=== PATIENT | female | born 1970 | race Caucasian/White ===

== ENCOUNTER 2019-11-13 07:45 | Outpatient (CLI) | payer BC, SELFPAY ==
--- NOTE | 2019-11-13 | XR_ITS ---
WS: [id number] RIGHT HAND: 2 VIEW(S) TECHNIQUE: PA and lateral. HISTORY: HAND INJURY RIGHT COMPARISON: None available. No acute fracture or dislocation. No soft tissue or bone abnormality. XR/XR hand RT 2V [id number] IMPRESSION: Normal RIGHT hand.
== END 2019-11-13 07:46 | disposition home or self-care (01) ==
LOC: RADOUTREAD 11-15 07:21
PROVIDERS: Family Provider Family Medicine; PCP Nurse Practitioner Family; Visit Provider Nurse Practitioner Family
DX: S69.91XA Unspecified injury of right wrist, hand and finger(s), initial encounter (principal); W19.XXXA Unspecified fall, initial encounter

== ENCOUNTER 2020-10-26 11:43 | Emergency (ER) | payer BC, SELFPAY ==
[2020-10-26 11:47] VITALS: BP 172/90; PULSE 92; RESP 18; TEMP 36.2; O2SAT 97; BMI 31.2
--- NOTE | 2020-10-26 11:57 | W.ED.ABDPA2 ---
HPI - Abdominal Pain General: Chief Complaint: Abdominal Pain Stated Complaint: ABD PAIN/SENT FROM Time Seen by Provider: 10/26/20 11:50 Source: patient Mode of arrival: ambulatory Limitations: no limitations History of Present Illness: HPI narrative: Pleasant 50-year-old female patient presents to the emergency department with 2-day history of abdominal pain. She reports pain started in the mid abdomen on the right side 2 days ago with migration to the right lower quadrant past 12 hours. Denies family history of appendicitis, reports pain is worse with walking and laughing. Reports nausea, denies fever chills. States increased frequency of bowel movements past 48 hours, denies diarrhea. Reports last ate yesterday at 1900, attempted to drink a diet Coke this morning at 8 AM but became nauseated. Last bowel movement this morning. MD elicited complaint: abdominal pain Onset (ago): day(s) (2) Pain Consistency: constant Location: RUQ, RLQ and R flank Severity: moderate Quality: cramping, aching and dull Radiation: RLQ and back Exacerbating factors: movement Relieving factors: rest Associated Symptoms: Reports anorexia, bloating, change in bowel habits, chills and nausea; Denies constipation, diarrhea, dysuria, heartburn and vomiting Review of Systems General: Reports: 10 or more systems reviewed and unremarkable except in HPI and below Const: Reports: chills Eyes: Denies: blurry vision or eye redness ENMT: Denies: throat pain, dental pain or disequilibrium Card: Denies: chest pain, palpitations or irregular heart rhythm Resp: Denies: dyspnea, productive cough, non-productive cough or wheezing GI: Reports: abdominal pain, nausea, bloating and change in bowel habits; Denies: vomiting, heartburn, diarrhea or constipation : Denies: difficulty voiding or dysuria Musc: Reports: back pain (rt); Denies: neck pain, muscle cramps or muscle weakness Skin/Breast: Denies: rash, pruritus or changes in skin color Neuro: Denies: headache(s), weakness in extremities or behavioral changes Psych: Denies: anxiety or depression Naldo/Lymph: Denies: easy bruising PFSH ED PFSH: Surgical History (Updated 10/26/20 @ 12:01 by CINDY Moscoso) History of partial hysterectomy Physical Exam Const: COMMON NORMALS: no acute distress, patient oriented x3, healthy appearing, alert and well nourished EXAM LIMITATIONS: no altered mental status and no physical limitations GENERAL APPEARANCE: cooperative, well kempt, well developed and well hydrated; not comfortable NUTRITIONAL APPEARANCE: overweight ORIENTATION/CONSCIOUSNESS: Yes awake, Yes oriented to person, Yes oriented to place and Yes oriented to time HENMT: COMMON NORMALS: normocephalic, Normal external nose present and moist oral mucous membranes HEAD & SCALP: normocephalic NOSE: Normal external nose present Eye: COMMON NORMALS: Equal, round and reactive pupils present and EOMs intact bilaterally GENERAL EYE: appearance normal, both eyes and all related structures PUPIL: Yes Equal, round and reactive pupils present Neck/C-Spine: COMMON NORMALS: full ROM and no lymphadenopathy GENERAL: Yes normal visual inspection and Yes trachea midline CERVICAL SPINE: Yes cervical ROM normal Lymph: LYMPHATIC: no lymphadenopathy noted Chest: COMMONS NORMALS: normal inspection of the chest Resp: COMMON NORMALS: normal respiratory effort, No retractions, No use of accessory muscles and clear to auscultation bilaterally EFFORT & INSPECTION: Yes able to speak in complete sentences AUSCULTATION: clear to auscultation bilaterally Cardio: COMMON NORMALS: regular rhythm, S1 normal heart sound present and S2 normal heart sound present RHYTHM: regular rhythm HEART SOUNDS: S1 normal heart sound present and S2 normal heart sound present GI: COMMON NORMALS: Soft to palpation and non-tender INSPECTION: Yes normal to inspection, No Abdominal wall edema, No abdominal distension, Yes incision, Yes central obesity and No visible herniation AUSCULTATION: Yes Hypoactive bowel sounds present PALPATION: Yes Soft to palpation, No Firmness to palpation present (GI), Yes Tenderness to palpation present (GI) Details: RLQ, No Rebound tenderness present and Yes Other GI palpation findings present (Negative Gee's, positive McBurney's, positive Scott) Back/Pelvis: COMMON NORMALS: thoracic and lumbar spine normal to inspection and thoraco-lumbar ROM normal GENERAL BACK: Yes CVA tenderness CVA tenderness: right Extremity: COMMON NORMALS: normal to inspection and capillary refill normal Neuro: COMMON NORMALS: patient oriented x3 and no focal motor deficits SENSORIUM/ORIENTATION: Yes alert, Yes oriented to person, Yes oriented to place and Yes oriented to time Psych: COMMON NORMALS: mental status grossly normal, Normal thought process present and cooperative APPEARANCE: Yes well kempt ACTIVITY/MOTOR BEHAVIOR: Yes appropriate eye contact THOUGHT PROCESS: Normal thought process present Skin: COMMON NORMALS: no rashes or lesions noted and turgor normal GENERAL SKIN EXAM: no rashes or lesions noted and turgor normal Course ED course: 50-year-old pleasant female presents to the emergency department with 2-day onset of abdominal pain. Abdominal pain was specific to the right lower quadrant today. Reports initial onset was localized to the right upper abdominal area with migration to the right lower quadrant. Serology findings normal, lipase was normal chemistry unremarkable and CBC without leukocytosis or anemia. Urine was without urinary tract infection, CT scan of the abdomen and pelvis with normal appendix, normal gallbladder, no acute findings identified. CT scan did reveal diverticulosis, esophageal gastric thickening suggestive of gastritis. She was placed on Zofran, able to tolerate p.o. ice chips/fluids here in the ED. Zofran did alleviate nausea, CT scan and serology work-up results discussed with patient and her spouse. Questions were answered as plan of care was discussed. She will receive prescription of Zofran with instructions to return to the emergency department for worsening symptoms. Verbalized understanding. Vital Signs: Vital signs: Vital Signs Temperature 97.2 F L 10/26/20 11:47 Pulse Rate 72 10/26/20 15:44 Respiratory Rate 18 10/26/20 15:44 Blood Pressure 132/80 10/26/20 15:44 Pulse Oximetry 94 10/26/20 15:44 MDM - Abdominal Pain Lab Data: Labs: Lab Results 10/26/20 10/26/20 10/26/20 Range/Units 12:18 12:26 12:26 WBC 9.1 (4.0-10.0) 10^3/ uL RBC 4.50 (4.1-5.3) 10^6/u L Hgb 13.7 (11.5-15.3) g/dL Hct 42.1 (37.0-47.0) % MCV 93.6 (81-99) fL MCH 30.4 (28.0-34.0) pg MCHC 32.5 (30.0-36.0) g/dL RDW 11.7 L (12.1-15.1) % Plt Count 364 (130-400) 10^3/c mm MPV 9.1 (7.4-10.4) fL Neut % (Auto) 63.3 % Lymph % (Auto) 23.8 % [place] % (Auto) 6.9 % Eos % (Auto) 5.0 % Baso % (Auto) 0.8 % Neut # (Auto) 5.77 (1.8-7.7) 10^3/u L Lymph # (Auto) 2.2 (0.8-4.8) 10^3/u L [place] # (Auto) 0.6 (0.2-0.9) 10^3/u L Eos # (Auto) 0.5 (0.0-0.8) 10^3/u L Baso # (Auto) 0.1 (0.0-0.1) 10^3/u L Nucleated RBC % (a uto) 0 % Nucleated RBCs # 0.0 /100WBC Sodium 140 (136-145) mmol/L Potassium 4.0 (3.5-5.1) mmol/L Chloride 108 H (98-107) mmol/L Carbon Dioxide 22 (22-29) mmol/L Anion Gap 14.0 (5-19) BUN 8 (6-20) mg/dL Creatinine 0.7 (0.5-0.9) mg/dL GFR Calculation 89.3 L (90-130) mL/min Glucose 100 (65-115) mg/dL Calculated Osmolal ity 288 (285-295) mOsm/k g Calcium 8.9 (8.5-10.5) mg/dL Total Bilirubin 0.5 (0.15-1.2) mg/dL AST 34 H (0-32) U/L ALT 54 H (0-33) U/L Alkaline Phosphata se 56 (35-105) IU/L Total Protein 6.9 (6.6-8.7) g/dL Albumin 4.3 (3.5-5.2) g/dL Globulin 2.6 (1.3-4.6) g/dL Lipase 16 (13-60) U/L Urine Color Yellow (Yellow) Urine Appearance Sl hazy (CLEAR) Urine pH 6 (5-7) Ur Specific Gravit y 1.015 (1.005-1.030) Urine Protein Neg (Negative) Urine Glucose (UA) Norm (Normal) Urine Ketones Negative (Negative) Urine Blood Neg (Negative) Urine Nitrate Negative (Negative) Urine Bilirubin Neg (Negative) Urine Urobilinogen Norm (Negative) mg/dL Ur Leukocyte Kianna ase Negative (Negative) Urine RBC None (0-2) /hpf Urine WBC Rare (0-5) /hpf Ur Squamous Epith Cells 10-15 H (0-5) /hpf Amorphous Sediment Not Reportable Urine Bacteria 2+ H (NONE) /hpf Urine Mucus 2+ /hpf Imaging Data ^: CT Abd/Pel: Radiologist's impression: [employer] [address] [address] Scan Report Signed Patient: Chantell Murphy Unit #: [id number] : 1970 Age/Sex: 50 / F ADM Date: 10/26/20 Loc: ER Room/Bed: Attending Dr: Ordering Provider/Ordering MD: Negrita Linton Date of Service: 10/26/20 Procedure(s): CT abdomen pelvis w con* [id number] Accession Number(s): [id number] Report Number: [id number] PROCEDURE INFORMATION: Exam: CT Abdomen And Pelvis With Contrast Exam date and time: 10/26/2020 1:52 PM Age: 50 years old Clinical indication: Abdominal pain; Localized; Right lower quadrant (rlq); Prior surgery; Surgery date: 6+ months; Surgery type: Hyst; Patient HX: C/O rlq pain w nausea; Additional info: Rlq pain, ? appy TECHNIQUE: Imaging protocol: Computed tomography of the abdomen and pelvis with intravenous contrast. Radiation optimization: All CT scans at this facility use at least one of these dose optimization techniques: automated exposure control; mA and/or kV adjustment per patient size (includes targeted exams where dose is matched to clinical indication); or iterative reconstruction. Contrast material: OMNI 300; Contrast volume: 95 ml; Contrast route: INTRAVENOUS (IV); COMPARISON: CT abdomen pelvis w con* [id number] 02/28/2015 3:09 PM RADIATION DOSE METRICS: Total DLP (mGy-cm): 1190.01 FINDINGS: Lungs: There are pulmonary parenchymal calcifications consistent with remote granulomatous organism exposure. Mediastinal space: There is mucosal thickening of the distal esophagus and gastroesophageal junction. Liver: Normal. No mass. Gallbladder and bile ducts: Normal. No calcified stones. No ductal dilation. Pancreas: Normal. No ductal dilation. Spleen: Normal. No splenomegaly. Adrenal glands: Normal. No mass. Kidneys and ureters: Normal. No hydronephrosis. Stomach and bowel: There is diverticulosis of the colon without evidence of diverticulitis. Appendix: A normal appendix is identified. Intraperitoneal space: Unremarkable. No free air. No significant fluid collection. Vasculature: Unremarkable. No abdominal aortic aneurysm. Lymph nodes: Unremarkable. No enlarged lymph nodes. Urinary bladder: Unremarkable as visualized. Reproductive: There are normal appearing ovarian follicles. The uterus has been removed. Bones/joints: Unremarkable. No acute fracture. Soft tissues: Tiny fat containing umbilical hernia. CT/CT abdomen pelvis w con* [id number] IMPRESSION: 1. A normal appendix is identified. No evidence for acute appendicitis. 2. There is thickening of the distal esophagus and gastroesophageal junction consistent with nonspecific esophagitis/gastritis. Radiation Dose CTDIVOL = (mGy): DLP = 1190.01 (mGy-cm) Dictated By: Sadie Rodriguez MD Signed By: Sadie Rodriguez MD Signed Date/Time: 10/26/201448 DD/ 47 Discharge Plan Discharge Patient Disposition: Home Clinical Impression: Abdominal pain Qualifiers: Abdominal location: right lower quadrant Qualified Code(s): R10.31 - Right lower quadrant pain Gastritis Qualifiers: Gastritis type: unspecified gastritis Chronicity: acute Gastritis bleeding: without bleeding Qualified Code(s): K29.00 - Acute gastritis without bleeding Condition: Stable Prescriptions: New Zofran 4 mg tablet 4 mg PO Q4H 5 Days Qty: 14 RF: 0 No Action montelukast 10 mg tablet 10 mg PO DAILY@21 RF: 0 albuterol sulfate 90 mcg/actuation HFA aerosol inhaler 2 puff INHALATION Q6H PRN (Reason: Shortness Of Breath) RF: 0 rosuvastatin 20 mg tablet 20 mg PO DAILY@21 RF: 0 bupropion HCl 150 mg tablet extended release 24 hr 150 mg PO DAILY@21 RF: 0 Discharge Orders: Discharge ED (Routine); Ordered 10/26/20 Ordered By: Negrita Linton Referrals: Zakiya Smith NP [Primary Care Provider] - Discharge Diet: Advance as tolerated and Clear Liquid Discharge Activity: Limit activity as instructed Patient Instructions: Acute Nausea and Vomiting (ED), Abdominal Pain (ED) Activity Restrictions/Additional Instructions: Clear liquid diet x12 hours and advance as tolerated; avoid fried fatty greasy foods for the next several days until feeling better Take Zofran as needed for nausea Return to the emergency department if you develop vomiting despite use of Zofran, worsening abdominal pain or new concerning symptoms Push fluids Coding Level of Care Code ED Mva Reactor Operator Head for Chiara Fwd Exam Comprehensive
[2020-10-26] MEDS: ondansetron 2 mg/ML SDV 2 mL 4 MG IVP (12:40)
[2020-10-26 13:13] LABS: Basophils # 0.1 10^3/uL (0.0-0.1); Basophils % 0.8 %; Eosinophils # 0.5 10^3/uL (0.0-0.8); Hematocrit 42.1 % (37.0-47.0); Hemoglobin 13.7 g/dL (11.5-15.3); Lymphocytes # 2.2 10^3/uL (0.8-4.8); Lymphocytes % 23.8 %; Mean Corpuscular HGB Conc 32.5 g/dL (30.0-36.0); Mean Corpuscular Hemoglobin 30.4 pg (28.0-34.0); Mean Corpuscular Volume 93.6 fL (81-99); Mean Platelet Volume 9.1 fL (7.4-10.4); Monocytes # 0.6 10^3/uL (0.2-0.9); Monocytes % 6.9 %; Neutrophils # 5.77 10^3/uL (1.8-7.7); Neutrophils % 63.3 %; Nucleated Red Blood Cells % 0 %; Platelet Count 364 10^3/cmm (130-400); Red Cell Distribution Width 11.7 % (12.1-15.1); White Blood Count 9.1 10^3/uL (4.0-10.0)
[2020-10-26 13:33] LABS: Add Urine Microscopic? YES; Bilirubin Urine Neg (Negative); Blood Urine Neg (Negative); Glucose Urine UA Norm (Normal); Ketones Urine Negative (Negative); Leukocyte Esterase Urine Negative (Negative); Nitrate Urine Negative (Negative); Protein Urine Neg (Negative); Specific Gravity, Urine 1.015 (1.005-1.030); Urine Appearance SL Hazy (CLEAR); Urine Color Yellow (Yellow); Urobilinogen Urine Norm (Negative); pH Urine 6 (5-7)
[2020-10-26 13:36] LABS: Alanine Aminotransferase 54 U/L (0-33); Albumin Level 4.3 g/dL (3.5-5.2); Alkaline Phosphatase 56 IU/L (35-105); Aspartate Amino Transferase 34 U/L (0-32); Blood Urea Nitrogen 8 mg/dL (6-20); Calcium 8.9 mg/dL (8.5-10.5); Carbon Dioxide 22 mmol/L (22-29); Chloride 108 mmol/L (98-107); Globulin 2.6 g/dL (1.3-4.6); Glomerular Filtration Rate 89.3 mL/min (90-130); Glucose 100 mg/dL (65-115); Lipase 16 U/L (13-60); Osmolality Calculated 288 mOsm/kg (285-295); Sodium 140 mmol/L (136-145); Total Bilirubin 0.5 mg/dL (0.15-1.2); Total Protein 6.9 g/dL (6.6-8.7)
[2020-10-26 13:37] LABS: Bacteria Urine 2+ /hpf; WBC Urine RARE /hpf (0-5)
[2020-10-26 13:38] LABS: Add Urine Culture? No; Mucus Urine 2+ /hpf
[2020-10-26] MEDS: iohexol 300 mg/mL 100 mL Btl IV (14:01)
[2020-10-26 14:44] VITALS: RESP 18; O2SAT 96
[2020-10-26] MEDS: morphine 4 mg/mL SDV 1 mL IVP (14:44)
[2020-10-26 14:52] VITALS: BP 118/78; PULSE 82; O2SAT 96
[2020-10-26] MEDS: ketorolac 30 mg/mL INJ IVP (15:26)
[2020-10-26 15:44] VITALS: BP 132/80; PULSE 72; RESP 18; O2SAT 94
== END 2020-10-26 15:45 | disposition home or self-care (01) ==
PROVIDERS: Emergency Provider Nurse Practitioner Family; PCP Nurse Practitioner Family
DX: K29.00 Acute gastritis without bleeding (principal)
CPT/HCPCS: 12345; 74177; 80053; 81001; 83690; 85025; 96374; 96375; 99283; J0131; J1885; J2270; J2405; Q9967

== ENCOUNTER 2022-10-22 21:24 | Emergency (ER) | payer OTHER, SELFPAY ==
--- NOTE | 2022-10-22 21:26 | XRR_ITS ---
PROCEDURE INFORMATION: Exam: XR Chest Exam date and time: 10/22/2022 9:41 PM Age: 52 years old Clinical indication: Angina; Additional info: Cp TECHNIQUE: Imaging protocol: Radiologic exam of the chest. Views: 1 view. COMPARISON: CT chest con [id number] 10/27/2016 10:42 AM FINDINGS: Lungs: Unremarkable. No consolidation. Pleural spaces: Unremarkable. No pleural effusion. No pneumothorax. Heart/Mediastinum: Unremarkable. No cardiomegaly. Bones/joints: Unremarkable. XR/XR chest 1V portable [id number] IMPRESSION: No acute findings.
[2022-10-22 21:30] VITALS: BMI 30.4
--- NOTE | 2022-10-22 21:38 | ECG_ITS ---
[facility] Test Date: 2022-10-22 Pat Name: Chantell Lyons Department: Room: Gender: Female Certified Medical Technician: : 1970 Requested By: León Friedman Order Number: [id number] Meng MD: Zohaib Chung M.D. Measurements Intervals [place] Rate: 77 P: 40 [place]: 127 QRS: 10 QRSD: 84 T: 44 QT: 386 QTc: 438 Interpretive Statements SINUS RHYTHM LOW QRS VOLTAGE IN PRECORDIAL LEADS [QRS DEFLECTION < 1.0 mV IN CHEST LEADS] POSSIBLE RIGHT VENTRICULAR CONDUCTION DELAY [RSR (QR) IN V1/V2] No previous ECG available for comparison Electronically Signed On 10-23-2022 7:54:50 HEAD USHER by Zohaib Chung M.D. [id number]
--- NOTE | 2022-10-22 21:45 | W.ED.CHESTPA ---
HPI - Chest Pain General: Chief Complaint: Chest Pain Stated Complaint: chest pain Time Seen by Provider: 10/22/22 21:27 Source: patient Mode of arrival: ambulatory Limitations: no limitations History of Present Illness: 52-year-old female who has a history of hypertension states that 1 hour prior arrival started having some chest discomfort states that mild pain center of her chest but felt like she is having arrhythmias she states she had some dyspnea as well she denies any cough or fever her pain currently is 1 out of 10 she denies any worsening improving factors. Denies any abdominal pain or vomiting. Associated symptoms: Reports dyspnea; Deny abdominal pain, fever(s), nausea or vomiting Review of Systems Const: Denies: fever(s), chills, body aches or change in appetite Eyes: Denies: blurry vision or eye discomfort ENMT: Denies: throat pain or dental pain Card: Reports: chest pain Resp: Reports: dyspnea GI: Denies: abdominal pain, nausea, vomiting or diarrhea : Denies: dysuria Musc: Denies: neck pain or back pain Skin/Breast: Denies: rash Neuro: Denies: headache(s) Psych: Denies: depression Naldo/Lymph: Denies: easy bruising All/Imm: Denies: urticaria PFSH ED PFSH: Medical History (Updated 10/23/22 @ 01:24 by León Friedman MD) No pertinent past medical history Surgical History History of partial hysterectomy Social History (Updated 10/22/22 @ 21:52 by León Friedman MD) Substance/Drug Use: never Physical Exam Const: COMMON NORMALS: no acute distress, patient oriented x3 and healthy appearing HENMT: COMMON NORMALS: normocephalic and atraumatic HEAD & SCALP: normocephalic and atraumatic Eye: COMMON NORMALS: Equal, round and reactive pupils present and EOMs intact bilaterally PUPIL: Yes Equal, round and reactive pupils present Neck/C-Spine: COMMON NORMALS: full ROM and supple Chest: COMMONS NORMALS: normal inspection of the chest and normal palpation of entire chest wall Resp: COMMON NORMALS: normal respiratory effort, No retractions, No use of accessory muscles and clear to auscultation bilaterally AUSCULTATION: clear to auscultation bilaterally Cardio: COMMON NORMALS: regular rate, regular rhythm and No murmurs present (Cardio) RATE: regular rate RHYTHM: regular rhythm GI: COMMON NORMALS: Normal to inspection, nondistended, normoactive bowel sounds present, Soft to palpation, non-tender and no masses PALPATION: Yes Soft to palpation Extremity: COMMON NORMALS: normal to inspection and full ROM Neuro: COMMON NORMALS: patient oriented x3, moves all extremities and no focal motor deficits Psych: COMMON NORMALS: mental status grossly normal, Normal thought process present and cooperative THOUGHT PROCESS: Normal thought process present Skin: COMMON NORMALS: no rashes or lesions noted and no wounds GENERAL SKIN EXAM: no rashes or lesions noted Course Vital Signs: Vital signs: Vital Signs Pulse Rate 66 10/22/22 22:29 Respiratory Rate 13 10/22/22 21:58 Pulse Oximetry 92 10/22/22 22:29 Oxygen Delivery Me thod 10/22/22 22:29 MDM - Chest Pain Medical Decision Making Patient presents here with chest pain since resolved initial repeat troponins and EKG are normal D-dimer is negative she is well-appearing here she is stable for discharge she is to follow-up with PCP and return if worsening. Lab Data 10/22/22 21:55 10/22/22 21:55 Radiology Impressions Chest X-Ray 10/22/22 21:26 IMPRESSION: No acute findings. Laboratory Results WBC 10.9 10^3/uL (4.0-10.0) H 10/22/22 21:55 RBC 4.51 10^6/uL (4.1-5.3) 10/22/22 21:55 Hgb 13.9 g/dL (11.5-15.3) 10/22/22 21:55 Hct 42.6 % (37.0-47.0) 10/22/22 21:55 MCV 94.5 fl (81-99) 10/22/22 21:55 MCH 30.8 pg (28.0-34.0) 10/22/22 21:55 MCHC 32.6 g/dL (30.0-36.0) 10/22/22 21:55 RDW 11.7 % (12.1-15.1) L 10/22/22 21:55 Plt Count 335 10^3/cmm (130-400) 10/22/22 21:55 MPV 9.0 fL (7.4-10.4) 10/22/22 21:55 Neut % (Auto) 53.8 % 10/22/22 21:55 Lymph % (Auto) 34.3 % 10/22/22 21:55 [place] % (Auto) 6.7 % 10/22/22 21:55 Eos % (Auto) 4.2 % 10/22/22 21:55 Baso % (Auto) 0.7 % 10/22/22 21:55 Neut # (Auto) 5.85 10^3/uL (1.8-7.7) 10/22/22 21:55 Lymph # (Auto) 3.7 10^3/uL (0.8-4.8) 10/22/22 21:55 [place] # (Auto) 0.7 10^3/uL (0.2-0.9) 10/22/22 21:55 Eos # (Auto) 0.5 10^3/uL (0.0-0.8) 10/22/22 21:55 Baso # (Auto) 0.1 10^3/uL (0.0-0.1) 10/22/22 21:55 Nucleated RBC % (auto) 0 % 10/22/22 21:55 Nucleated RBCs # 0.0 /100WBC 10/22/22 21:55 PT 12.70 SECONDS (12.1-14.9) 10/22/22 21:55 INR 0.92 (0.8-1.2) 10/22/22 21:55 D-Dimer 0.38 ug/mIFEU (0-0.59) 10/22/22 21:55 Sodium 139 mmol/L (136-145) 10/22/22 21:55 Potassium 3.5 mmol/L (3.5-5.1) 10/22/22 21:55 Chloride 105 mmol/L (98-107) 10/22/22 21:55 Carbon Dioxide 24 mmol/L (22-29) 10/22/22 21:55 Anion Gap 13.5 (5-19) 10/22/22 21:55 BUN 9 mg/dL (6-20) 10/22/22 21:55 Creatinine 0.7 mg/dL (0.5-0.9) 10/22/22 21:55 GFR Calculation 88.6 mL/min (90-130) L 10/22/22 21:55 Glucose 109 mg/dL (65-115) 10/22/22 21:55 Calculated Osmolality 287 mOsm/kg (285-295) 10/22/22 21:55 Calcium 9.1 mg/dL (8.5-10.5) 10/22/22 21:55 Total Bilirubin 0.9 mg/dL (0.15-1.2) 10/22/22 21:55 AST 22 U/L (0-32) 10/22/22 21:55 ALT 32 U/L (0-33) 10/22/22 21:55 Alkaline Phosphatase 61 U/L (35-105) 10/22/22 21:55 Troponin T Baseline 6 ng/L (0-10) 10/22/22 21:55 Troponin T 120 Minute 6.47 ng/L (0-10) 10/23/22 00:23 Delta Troponin T 0.47 ABS# (0-10) 10/23/22 00:23 Total Protein 6.4 g/dL (6.6-8.7) L 10/22/22 21:55 Albumin 4.1 g/dL (3.5-5.2) 10/22/22 21:55 Globulin 2.3 g/dL (1.3-4.6) 10/22/22 21:55 Influenza Type A Ag negative (Negative) 10/22/22 21:55 Influenza Type B Ag negative (Negative) 10/22/22 21:55 EKG Data EKG 1: I personally reviewed and interpreted this EKG as follows: EKG interpretation date: 10/22/22 EKG interpretation time: 21:38 Interpretation: nsr hr [address] or t wave abnormalities qrs 84 qtc 418 Discharge Plan Discharge Patient Disposition: Home Clinical Impression: Chest pain Condition: Stable Prescriptions: No Action montelukast 10 mg tablet 10 mg PO DAILY@21 albuterol sulfate 90 mcg/actuation HFA aerosol inhaler 2 puff INHALATION Q6H PRN (Reason: Shortness Of Breath) rosuvastatin 20 mg tablet 20 mg PO DAILY@21 bupropion HCl 150 mg tablet extended release 24 hr 150 mg PO DAILY@21 Discharge Orders: Discharge ED (Routine); Ordered 10/23/22 Ordered By: León Friedman Referrals: Zakiya Smith, COMPOTYPE OPERATOR [Primary Care Provider] - 1-3 days Discharge Diet: Advance as tolerated Discharge Activity: Resume usual activity Patient Instructions: Chest Pain (ED) Coding Level of Care Code ED Library Technology Instructor for Chg Fwd Exam Comprehensive
[2022-10-22] MEDS: labetalol 5 mg/mL SDV 20mL 10 MG IVP (21:54)
[2022-10-22 21:58] VITALS: PULSE 67; RESP 13; O2SAT 92
[2022-10-22 22:15] LABS: Basophils # 0.1 10^3/uL (0.0-0.1); Basophils % 0.7 %; Eosinophils # 0.5 10^3/uL (0.0-0.8); Eosinophils % 4.2 %; Hematocrit 42.6 % (37.0-47.0); Hemoglobin 13.9 g/dL (11.5-15.3); Lymphocytes # 3.7 10^3/uL (0.8-4.8); Lymphocytes % 34.3 %; Mean Corpuscular HGB Conc 32.6 g/dL (30.0-36.0); Mean Corpuscular Hemoglobin 30.8 pg (28.0-34.0); Mean Corpuscular Volume 94.5 fl (81-99); Monocytes # 0.7 10^3/uL (0.2-0.9); Monocytes % 6.7 %; Neutrophils # 5.85 10^3/uL (1.8-7.7); Neutrophils % 53.8 %; Nucleated Red Blood Cells % 0 %; Platelet Count 335 10^3/cmm (130-400); Red Blood Count 4.51 10^6/uL (4.1-5.3); Red Cell Distribution Width 11.7 % (12.1-15.1); White Blood Count 10.9 10^3/uL (4.0-10.0)
[2022-10-22] MEDS: aspirin 81 mg Chew Tablet 324 MG PO (22:17)
[2022-10-22 22:26] LABS: INR 0.92 (0.8-1.2)
[2022-10-22 22:29] VITALS: PULSE 66; O2SAT 92
[2022-10-22 22:29] LABS: D Dimer 0.38 ug/mIFEU (0-0.59)
[2022-10-22] MEDS: ipratropium-albuterol 3 mL Neb INHALATION (22:29)
[2022-10-22 22:30] LABS: Influenza A by IFA negative (Negative); Influenza B by IFA negative (Negative)
[2022-10-22 22:31] LABS: Alanine Aminotransferase 32 U/L (0-33); Albumin Level 4.1 g/dL (3.5-5.2); Alkaline Phosphatase 61 U/L (35-105); Anion Gap 13.5 (5-19); Aspartate Amino Transferase 22 U/L (0-32); Blood Urea Nitrogen 9 mg/dL (6-20); Calcium 9.1 mg/dL (8.5-10.5); Carbon Dioxide 24 mmol/L (22-29); Chloride 105 mmol/L (98-107); Globulin 2.3 g/dL (1.3-4.6); Glomerular Filtration Rate 88.6 mL/min (90-130); Glucose 109 mg/dL (65-115); Osmolality Calculated 287 mOsm/kg (285-295); Potassium 3.5 mmol/L (3.5-5.1); Sodium 139 mmol/L (136-145); Total Bilirubin 0.9 mg/dL (0.15-1.2); Total Protein 6.4 g/dL (6.6-8.7)
[2022-10-22 22:33] LABS: Troponin(5th) Baseline 6 ng/L (0-10)
--- NOTE | 2022-10-22 23:26 | ECG_ITS ---
[facility] Test Date: 2022-10-23 Pat Name: Chantell Lyons Department: Room: Gender: Female Cork Insulator: : 1970 Requested By: León Friedman Order Number: [id number] Meng MD: Ricardo Power M.D. Measurements Intervals [place] Rate: 76 P: 46 [place]: 136 QRS: 28 QRSD: 84 T: 45 QT: 405 QTc: 456 Interpretive Statements SINUS RHYTHM WITH OCCASIONAL VENTRICULAR PREMATURE COMPLEXES LOW QRS VOLTAGE IN PRECORDIAL LEADS [QRS DEFLECTION < 1.0 mV IN CHEST LEADS] Compared to ECG 10/22/2022 21:38:40 Ventricular premature complex(es) now present Electronically Signed On 10-23-2022 15:42:26 LIFE SKILLS COORDINATOR VOLUNTEER by Ricardo Power M.D. [id number]
[2022-10-23 01:05] LABS: Troponin 5 2HR 6.47 ng/L (0-10)
[2022-10-23 01:12] LABS: Troponin 5 2HR Delta 0.47 ABS# (0-10)
[2022-10-23 02:23] VITALS: BP 130/80; PULSE 78; RESP 16; O2SAT 97
== END 2022-10-23 02:27 | disposition home or self-care (01) ==
PROVIDERS: Emergency Provider Emergency Medicine; PCP Nurse Practitioner Family
DX: R07.9 Chest pain, unspecified (principal)
CPT/HCPCS: 71045; 80053; 84484; 85025; 85378; 85610; 87804; 93005; 94640; 96374; 99285; J3490

== ENCOUNTER 2023-07-30 13:04 | Outpatient (CLI) | payer OTHER, SELFPAY ==
--- NOTE | 2023-07-30 13:15 | USCV_ITS ---
Chantell Lyons Age: 53 Gender: F : 1970 Exam Date: 07/30/2023 13:24 Ordering Phys: Ricardo Power MD ([email or web address]) Technologist: CT Exam Location: [facility] [place] Indication: Murmur BP: 120 / 70 HR: 54 Rhythm: Sinus Technical Quality: Adequate MEASUREMENTS (Male / Female) Normal Values 2D ECHO LV Chamber Size 3.7 cm LVOT Diameter 2.1 cm LV Ejection Fraction MOD 2C 60.9 % LV Ejection Fraction 2C AL 60.8 % LA Diameter 4.1 cm LA Width 4.6 cm LA Height 5.5 cm RA Width 3.6 cm RA Height 5.3 cm Aorta at Sinotubular Diameter 2.5 cm IVC Diameter 1.5 cm M-MODE Aortic Annulus Diameter 3.7 cm LA Ao Ratio MM 1.2 MV E Point Septal Separation 0.7 cm DOPPLER AV Peak Velocity 152.0 cm/s LVOT Peak Velocity 85.0 cm/s AV Area Cont Eq vti 2.2 cm squared AV Area Cont Eq pk 2.0 cm squared MV Area PHT 3.3 cm squared Mitral E to A Ratio 2.0 MV E' Velocity 63.5 cm/s Mitral E to MV E' Ratio 9.5 Mitral E to LV E' Lateral Ratio 11.0 Mitral E to LV E' Septal Ratio 8.4 TR Peak Velocity 152.0 cm/s TR Peak Gradient 9.2 mmHg TV Peak E Velocity 80.0 cm/s Right Atrial Pressure 3.0 mmHg Pulmonary Artery Systolic Pressu 12.2 mmHg PV Peak Velocity 99.0 cm/s FINDINGS Left Ventricle Left ventricle is normal size. LV systolic function is normal with EF 55 to 60%. No regional wall motion abnormalities are seen. Right Ventricle Normal in size and function Right Atrium Normal in size Left Atrium Dilated Mitral Valve Structurally normal mitral valve. Trace mitral regurgitation Aortic Valve Structurally normal aortic valve. No significant stenosis or regurgitation. Tricuspid Valve Trace tricuspid regurgitation. Insufficient TR jet to calculate RVSP Pulmonic Valve Not well-visualized Pericardium Normal Aorta Normal in size IVC Appears to be normal CONCLUSIONS LV systolic function is normal with EF of 55 to 60%. Left atrial dilation Trace mitral regurgitation Trace tricuspid regurgitation No comparison studies are available Zohaib Chung MD (Electronically Signed) Final Date: 10 August 2023 16:53 S
== END 2023-07-30 13:05 | disposition home or self-care (01) ==
PROVIDERS: PCP Family Medicine; Visit Provider Internal Medicine Cardiovascular Disease
DX: R06.09 Other forms of dyspnea (principal); R01.1 Cardiac murmur, unspecified; I51.7 Cardiomegaly
CPT/HCPCS: 93306

== ENCOUNTER 2025-01-05 10:08 | Outpatient (CLI) | payer OTHER, SELFPAY ==
--- NOTE | 2025-01-05 10:19 | MM_ITS ---
WS: [id number] BILATERAL SCREENING DIGITAL TOMOSYNTHESIS MAMMOGRAM WITH CAD HISTORY: SCREENING COMPARISON: 05/26/2018, 03/27/2015 Bilateral CC and MLO views with tomosynthesis and synthetic mammography submitted. Computer aided detection analyzed. Breast composition: The breasts are extremely dense, which lowers the sensitivity of mammography. No suspicious masses, microcalcifications or architectural distortion. MM/MM scr tomosynthesis [id number] IMPRESSION: BI-RADS: 1 - Negative FOLLOW UP: 1 Year Follow-up
== END 2025-01-05 10:09 | disposition home or self-care (01) ==
LOC: RAD 10:11
PROVIDERS: PCP Family Medicine; Visit Provider Family Medicine
DX: Z12.31 Encounter for screening mammogram for malignant neoplasm of breast (principal); R92.343 Mammographic extreme density, bilateral breasts
CPT/HCPCS: 77063; 77067